=== PATIENT | female | born 1950 | race Caucasian/White ===

== ENCOUNTER 2024-09-22 17:18 | Inpatient (IN) | payer OTHER ==
[2024-09-22 17:45] VITALS: BMI 23.4
[2024-09-22] MEDS: ALBUTEROL SO4 2.5/IPRATROPIUM 0.5 INH SOL 3 ML VIAL.NEB. NEB SCH (17:50)
[2024-09-22 18:40] LABS: VENOUS BASE EXCESS -4.7 mmol/L (-2-2); VENOUS O2 SATURATION 45.8 % (70-80); VENOUS PCO2 45.7 mmHg (38-52); VENOUS PH 7.296 (7.310-7.410)
[2024-09-22 18:50] LABS: BASO % 0.6 % (0-2.0); EOS % 1.5 % (0-4.5); HEMATOCRIT 34.3 % (32.4-45.2); HEMOGLOBIN 11.1 GM/dL (10.7-15.3); MCH 27.2 pg (25.7-33.7); MCHC 32.5 g/dl (32.0-36.0); MEAN CELL VOLUME 83.6 fl (80-96); MEAN PLT VOLUME 7.4 fl (7.5-11.1); MONO % 8.6 % (3.8-10.2); NEUT % 53.3 % (42.8-82.8); PLATELET COUNT 411 10^3/uL (134-434); RDW 20.3 % (11.6-15.6); WHITE BLOOD COUNT 10.1 K/mm3 (4.0-10.0)
[2024-09-22 19:14] LABS: POTASSIUM 4.7 mmol/L (3.5-5.1)
[2024-09-22 19:16] LABS: ALBUMIN 3.1 g/dl (3.4-5.0); BLOOD UREA NITROGEN 13.4 mg/dL (7-18); CALCIUM 8.9 mg/dL (8.5-10.1)
[2024-09-22 19:19] LABS: CREATININE 0.6 mg/dL (0.55-1.3)
[2024-09-22 19:21] LABS: BILIRUBIN,TOTAL 0.4 mg/dL (0.2-1); INR 1.39 (0.83-1.09); PROTHROMBIN TIME (PATIENT) 15.3 SEC (9.7-13.0); TOT PROT 6.4 g/dl (6.4-8.2)
[2024-09-22 19:24] LABS: ACTIVATED PTT 60.1 SECONDS (25.2-36.5)
[2024-09-22] MEDS ORDERED: methylPREDNISolone NA SUCC 125 MG/2 ML VIAL ONE (19:29)
[2024-09-22] MEDS: methylPREDNISolone NA SUCC 125 MG/2 ML VIAL IVPUSH ONE (19:33)
[2024-09-23 00:54] LABS: ARTERIAL BLD GAS O2 SATURATION 99.5 % (95-98); ARTERIAL BLOOD GAS BASE EXCESS -1.8 mmol/L (-2-2); ARTERIAL BLOOD GAS PO2 216.5 mmHg (80-100); ARTERIAL BLOOD GAS pH 7.445 (7.350-7.450)
[2024-09-23 01:00] LABS: ALLENS TEST POSITIVE
[2024-09-23 01:01] LABS: VENT MODE ST; VENT RATE 14
[2024-09-23] MEDS ORDERED: MELATONIN 1 MG TABLET PO PRN (03:11)
[2024-09-23] MEDS ORDERED: LACTULOSE 20 GM/30 ML UDC (FOR ORAL USE ONLY) PO PRN (03:11)
[2024-09-23] MEDS ORDERED: ACETAMINOPHEN 325 MG TABLET (FP) PO PRN (03:11)
[2024-09-23] MEDS: PATIENT'S OWN MEDICATION (NON-FORMULARY) (Fluticasone Propion/Salmeterol [Fluticasone-Salm IH SCH (04:24)
[2024-09-23] MEDS ORDERED: ALBUTEROL SO4 0.5 % INH SOLN 2.5 MG/0.5 ML VIAL.NEB. NEB PRN (05:18)
[2024-09-23] MEDS: ALBUTEROL SO4 2.5/IPRATROPIUM 0.5 INH SOL 3 ML VIAL.NEB. NEB SCH (06:19)
[2024-09-23 06:20] VITALS: TEMP 98.6
[2024-09-23] MEDS ORDERED: ALBUTEROL SO4 2.5/IPRATROPIUM 0.5 INH SOL 3 ML VIAL.NEB. NEB ONE (07:25)
[2024-09-23 07:34] LABS: BASO % 0.2 % (0-2.0); EOS % 0.1 % (0-4.5); HEMATOCRIT 33.6 % (32.4-45.2); LYMPH % 15.1 % (8-40); MCH 27.3 pg (25.7-33.7); MCHC 32.7 g/dl (32.0-36.0); MEAN CELL VOLUME 83.4 fl (80-96); MEAN PLT VOLUME 7.7 fl (7.5-11.1); MONO % 0.9 % (3.8-10.2); NEUT % 83.7 % (42.8-82.8); PLATELET COUNT 404 10^3/uL (134-434); RBC 4.03 M/mm3 (3.60-5.2); RDW 20.5 % (11.6-15.6)
[2024-09-23 08:04] LABS: POTASSIUM 4.5 mmol/L (3.5-5.1)
[2024-09-23 08:23] LABS: ALBUMIN 2.9 g/dl (3.4-5.0)
[2024-09-23 08:24] LABS: MAGNESIUM 2.3 mg/dL (1.8-2.4)
[2024-09-23 08:25] LABS: BILIRUBIN,TOTAL 0.4 mg/dL (0.2-1); CREATININE 0.6 mg/dL (0.55-1.3); TOT PROT 6.2 g/dl (6.4-8.2)
[2024-09-23 08:27] LABS: PHOSPHOROUS 4.4 mg/dL (2.5-4.9)
[2024-09-23 09:17] VITALS: BP 108/76; PULSE 94; RESP 20
[2024-09-23 09:44] LABS: ANISOCYTOSIS 1+
[2024-09-23] MEDS ORDERED: SENNOSIDES 8.6MG TABLET (FP) PO ONE (09:49)
[2024-09-23] MEDS ORDERED: POLYETHYLENE GLYCOL (HEALTHYLAX) 3350 17 GM PACKET ONE (09:49)
[2024-09-23] MEDS ORDERED: LEVOTHYROXINE NA 50 MCG TABLET (FP) ONE (09:49)
[2024-09-23] MEDS ORDERED: ENOXAPARIN NA (PORCINE) 40 MG/0.4 ML DISP.SYRIN SQ ONE (09:50)
[2024-09-23] MEDS ORDERED: methylPREDNISolone NA SUCC 40 MG/1 ML VIAL ONE (09:50)
[2024-09-23] MEDS ORDERED: SENNOSIDES 8.6MG TABLET (FP) PO SCH (10:00)
[2024-09-23] MEDS: methylPREDNISolone NA SUCC 40 MG/1 ML VIAL IVPUSH SCH (10:00)
[2024-09-23] MEDS: POLYETHYLENE GLYCOL (HEALTHYLAX) 3350 17 GM PACKET PO SCH (10:00)
[2024-09-23] MEDS: SENNOSIDES 8.6MG TABLET (FP) PO SCH (10:00)
[2024-09-23] MEDS ORDERED: PATIENT'S OWN MEDICATION (NON-FORMULARY) (Umeclidinium Bromide [Incruse Ellipta] 62.5 MCG IH SCH (10:00)
[2024-09-23] MEDS: LEVOTHYROXINE NA 50 MCG TABLET (FP) PO SCH (10:00)
[2024-09-23] MEDS: CYANOCOBALAMIN 1,000 MCG TABLET (FP) PO SCH (10:00)
[2024-09-23] MEDS: ENOXAPARIN NA (PORCINE) 40 MG/0.4 ML DISP.SYRIN SQ SCH (10:00)
[2024-09-23] MEDS: MEMANTINE HCL 5 MG TABLET (UD) PO SCH (10:00)
[2024-09-23] MEDS ORDERED: BUDESONIDE/FORMETEROL FUMARATE 80/4.5 mcg INHALER IH SCH (11:10)
[2024-09-23 11:11] LABS: URINE APPEARANCE CLEAR; URINE BILIRUBIN NEGATIVE (NEGATIVE); URINE COLOR YELLOW; URINE GLUCOSE (UA) NEGATIVE (NEGATIVE); URINE KETONE TRACE (NEGATIVE); URINE LEUK ESTERASE NEGATIVE (NEGATIVE); URINE NITRITE NEGATIVE (NEGATIVE); URINE PROTEIN NEGATIVE (NEGATIVE); URINE UROBILINOGEN 0.2 mg/dL (0.2-1.0)
[2024-09-23] MEDS ORDERED: ATORVASTATIN CA 40 MG TABLET (FP) PO SCH (22:00)
[2024-09-23] MEDS ORDERED: DULoxetine HCL 60 MG CAPSULE.DR PO SCH (22:00)
[2024-09-23] MEDS ORDERED: OLANZapine 10 MG TABLET PO SCH (22:00)
== END 2024-09-23 13:09 | DRG 190 ==
LOC: JER 17:18 → JERBED 19:06
PROVIDERS: ADMIT Internal Medicine
DX: J44.1 Chronic obstructive pulmonary disease with (acute) exacerbation (principal); E43 Unspecified severe protein-calorie malnutrition; J96.01 Acute respiratory failure with hypoxia; I11.0 Hypertensive heart disease with heart failure; I50.9 Heart failure, unspecified; G31.83 Neurocognitive disorder with Lewy bodies; F02.80 Dementia in other diseases classified elsewhere, unspecified severity, without behavioral disturbance, psychotic disturbance, mood disturbance, and anxiety; E11.9 Type 2 diabetes mellitus without complications; E78.5 Hyperlipidemia, unspecified; E03.9 Hypothyroidism, unspecified; D64.9 Anemia, unspecified; F41.8 Other specified anxiety disorders; K59.00 Constipation, unspecified; F20.9 Schizophrenia, unspecified; Z68.24 Body mass index [BMI] 24.0-24.9, adult; Z85.3 Personal history of malignant neoplasm of breast
CPT/HCPCS: 0241U-QW; 36415; 36600; 71045-TC-FY; 80053; 81003; 82803; 83605; 83735; 83880; 84100; 84439; 84443; 84484; 85025; 85610; 85730; 93005; 93010; 94660; 99285-25

== ENCOUNTER 2024-10-19 11:02 | Emergency (ER) | payer OTHER, BC ==
[2024-10-19 11:30] VITALS: BP 0/0; BMI 22.8
== END 2024-10-19 11:14 | disposition expired ==
LOC: JER 11:02
PROC: 5A12012 Performance of Cardiac Output, Single, Manual (ICD-10-PCS; principal; 2024-10-19)
DX: I46.9 Cardiac arrest, cause unspecified (principal)
CPT/HCPCS: 92950; 99285-25